=== PATIENT | female | born 1965 | race Asian ===

== ENCOUNTER 2018-04-08 11:20 | Day surgery (SDC) | payer BC ==
[~2018-04-08] VITALS: Ht 147.3 cm; Wt 44.5 kg
[2018-04-08] VITALS (9 sets, daily range): BP systolic 105–121; BP diastolic 55–70
[2018-04-08] MEDS ORDERED: Cyclopentolate 1% Opth Sol 2ml ONE (11:55)
[2018-04-08] MEDS ORDERED: Phenylephrine 2.5% Op 2ml Soln ONE (11:55)
[2018-04-08] MEDS: Phenylephrine 2.5% Op 2ml Soln RIGHT EYE SCH ×3 (12:05→12:24)
[2018-04-08] MEDS: Cyclopentolate 1% Opth Sol 2ml RIGHT EYE SCH ×3 (12:06→12:24)
[2018-04-08] MEDS ORDERED: JANUMET 50-1,01 EACH ORAL (12:22)
[2018-04-08] MEDS ORDERED: VITAMIN C500 M1 ORAL (12:22)
[2018-04-08] MEDS ORDERED: ACTOS15 MG ORAL (12:22)
[2018-04-08] MEDS ORDERED: ASPIR 8181 MG ORAL (12:22)
[2018-04-08] MEDS ORDERED: SIMVASTATIN20 MG ORAL (12:22)
[2018-04-08] MEDS ORDERED: VITAMIN B122500 MCG PO (12:22)
[2018-04-08] MEDS ORDERED: VITAMIN D400 INTLU ORAL (12:22)
[2018-04-08] MEDS ORDERED: PRANDIN PO (12:22)
[2018-04-08] MEDS ORDERED: JARDIANCE PO (12:22)
[2018-04-08] MEDS ORDERED: VITAMIN E400 UNI5 PO (12:22)
[2018-04-08] MEDS ORDERED: LR 1000ml 1,000 ML IVLG SCH (12:23)
--- NOTE | 2018-04-08 12:23 | Anethesia Preoperative Eval ---
Anesthesia Pre-op PMH/ROS General Date of Evaluation: Apr 08, 2018 Anesthesiologist: Issa ASA Score: ASA 2 Mallampati Score Class I : Soft palate, uvula, fauces, pillars visible Class II: Soft palate, uvula, fauces visible Class III: Soft palate, base of uvula visible Class IV: Only hard plate visible Mallampati Classification: Class II Surgeon: Michelle Diagnosis: Right eye retinal bleed Surgical Procedure: Right eye vitrectomy Anesthesia History: none Family History: no anesthesia problems Allergies: Coded Allergies: IBUPROFEN (Verified Allergy, Severe, 04/08/18) DIFFICULTY BREATHING,SWELLING ON FACE AND EYES,SNEEZING AND TEARY EYES Medications: see eMAR Patient NPO?: Yes NPO Date: Apr 07, 2018 NPO Time: 22:00 Past Medical History Cardiovascular: Reports: other - HLD; Denies: HTN, CAD, AR, valve dz, arrhythmia Pulmonary: Denies: asthma, COPD, MANAN, other Gastrointestinal/Genitourinary: Denies: GERD, CRI, ESRD, other Neurologic/Psychiatric: Denies: dementia, CVA, depression/anxiety, TIA, other Endocrine: Reports: DM; Denies: hypothyroidism, steroids, other HEENT: Denies: cataract (L), cataract (R), glaucoma, HO-CHUNK (L), HO-CHUNK (R), other Hematology/Immune: Denies: anemia, DVT, bleeding disorder, other Musculoskeletal/Integumentary: Denies: OA, RA, DJD, DDD, edema, other PSxH Narrative: c/s, left knee sx Anesthesia Pre-op Phys. Exam Physician Exam Last Vital Signs Date Time Temp Pulse Resp B/P (MAP) Pulse Ox O2 Delivery O2 Flow Rate FiO2 04/08/18 12:11 Room Air Constitutional: NAD Cardiovascular: RRR Respiratory: CTA Airway Exam Mallampati Score: Class II MO: full ROM: full Anesthesia Pre-op A/P Labs see chart Studies Pre-op Studies: EKG - sr Risk Assessment & Plan Assessment: ASA II Plan: MAC Status Change Before Surgery: No Pre-Antibiotics Drug: N/A Malrene Abraham MD Apr 08, 2018 12:23
[2018-04-08] MEDS ORDERED: Goniotaire 2.5% Opth Soln - 15ml ONE (12:28)
[2018-04-08] MEDS ORDERED: Pred Forte 1% Opth Susp 1ml ONE (12:28)
[2018-04-08] MEDS ORDERED: EPINEPHrine 1mg/1ml Amp ONE (12:28)
[2018-04-08] MEDS ORDERED: Lidocaine 2% MPF 5ml Vial INJ ONE (12:28)
[2018-04-08] MEDS ORDERED: Maxitrol Opth Oint 3.5gm ONE (12:28)
[2018-04-08] MEDS ORDERED: Kenalog-40 1ml Vial ONE (12:28)
[2018-04-08] MEDS ORDERED: BSS 15ml BTL ONE (12:29)
[2018-04-08] MEDS ORDERED: Kenalog-10 5ml Inj ONE (12:29)
[2018-04-08] MEDS ORDERED: Povidone-Iodine 5% opth solution ONE (12:29)
[2018-04-08] MEDS ORDERED: Dexamethasone 4mg/ml vial ONE (12:29)
[2018-04-08] MEDS ORDERED: Vancomycin 1gm vial IVPB ONE (12:29)
[2018-04-08] MEDS ORDERED: BSS 500ml btl ONE (12:29)
[2018-04-08] MEDS ORDERED: Sodium Hyaluronate 10 mg/ml 0.85ml ONE (12:30)
[2018-04-08] MEDS ORDERED: Bupivacaine 0.75% 30ml vial INJ ONE (12:30)
[2018-04-08] MEDS ORDERED: DiphenhydrAMINE 50mg/ml Inj IVP PRN (12:30)
[2018-04-08] MEDS ORDERED: Triamcinolone 40mg/ml PF Vial ONE (12:30)
[2018-04-08] MEDS ORDERED: Tetracaine 0.5% Opth 4ml Soln ONE (12:30)
[2018-04-08] MEDS ORDERED: fentaNYL 100 mcg/2 mL IV ONE (12:51)
[2018-04-08] MEDS ORDERED: DiphenhydrAMINE 50mg/ml Inj ONE (12:51)
[2018-04-08] MEDS ORDERED: Lidocaine 1% MPF 10mg/ml 5ml ONE (13:00)
[2018-04-08] MEDS ORDERED: Sterile Water Irrig 1000ml IRRIG ONE (13:00)
[2018-04-08] MEDS ORDERED: NS Irrig 1000ml ONE (13:00)
[2018-04-08] MEDS ORDERED: Propofol 200mg/20ml IV ONE (13:00)
[2018-04-08] MEDS ORDERED: LR 1000ml ONE (13:00)
[2018-04-08] MEDS ORDERED: Tobramycin Op Soln 0.3% 5ml ONE (14:12)
--- NOTE | 2018-04-08 14:22 | 48 Hour Post Anesthesia Eval ---
Post Anesthesia Evaluation Procedure: Right eye vitrectomy Date of Evaluation: Apr 08, 2018 Airway: patent Nausea: No Vomiting: No Pain Intensity: 0 Hydration Status: adequate Cardiopulmonary Status: at baseline Mental Status/LOC: patient returned to baseline Post-Anesthesia Complications: 0 Follow-up care needed: ready to discharge Marlene Abraham MD Apr 08, 2018 14:22
--- NOTE | 2018-04-08 14:22 | Pre-Procedure Note/Attestation ---
Pre-Procedure Note/Attestation Complete Prior to Procedure Planned Procedure: right Procedure Narrative: ppv/el/afx/sf6 od Indications for Procedure Pre-Operative Diagnosis: pdr, vh od Attestation I attest that I discussed the nature of the procedure; its benefits; risks and complications; and alternatives (and the risks and benefits of such alternatives ), prior to the procedure, with the patient (or the patient's legal pharmacy sales representative). I attest that, if there was a reasonable possibility of needing a blood transfusion, the patient (or the patient's legal pharmacy sales representative) was given the [facility] standardized written summary, pursuant to the [place] Blood Safety Act ([place] Health and Safety Code # 1645, as amended). I attest that I re-evaluated the patient just prior to the surgery and that there has been no change in the patient's H&P, except as documented below: Chris Martinez MD Apr 08, 2018 14:22
--- NOTE | 2018-04-08 14:22 | Immediate Post-Op Evaluation ---
Immediate Post-Op Evalulation Immediate Post-Op Evalulation Procedure: Right eye vitrectomy Date of Evaluation: Apr 08, 2018 Time of Evaluation: 14:23 IV Fluids: 300 Blood Products: 0 Estimated Blood Loss: 0 Urinary Output: 0 Blood Pressure Systolic: 116 Blood Pressure Diastolic: 68 Pulse Rate: 68 Respiratory Rate: 16 O2 Sat by Pulse Oximetry: 99 Temperature (Fahrenheit): 97.5 Pain Score (1-10): 0 Nausea: No Vomiting: No Complications 0 Patient Status: awake, reacts, patent, none Hydration Status: adequate Drug: N/A Marlene Abraham MD Apr 08, 2018 14:22
--- NOTE | 2018-04-08 14:23 | Operative Note - PDOC ---
Operative Note Operative Note Chief Complaint: Va loss od (severe) Pre-op Diagnosis: pdr, vh od Procedure: ppv/mp/el/sf6(22%) od Post-op Diagnosis: pdr, vh, trd od Post-op Diagnosis: same as pre-op plus Operative Findings: consistent w/pre-op dx studies Surgeon: cipriano Simulation Software Engineer: none Anesthesia: local, MAC Specimen: none Complications: none Condition: stable Estimated Blood Loss: none Drains: none Implant(s) used?: No Chris Martinez MD Apr 08, 2018 14:23
[2018-04-08] MEDS ORDERED: Norco 5mg/325mg tab ORAL PRN (14:30)
--- NOTE | 2018-04-08 20:15 | Operative Note - Dictated ---
DATE OF OPERATION: 04/08/2018 PREOPERATIVE DIAGNOSES: 1. Vitreous hemorrhage, right eye. 2. Proliferative diabetic retinopathy, right eye. POSTOPERATIVE DIAGNOSIS: 1. Vitreous hemorrhage, right eye. 2. Proliferative diabetic retinopathy, right eye. 3. Tractional retinal detachment, right eye. PROCEDURE: Pars plana vitrectomy; membrane peel; endolaser; air-fluid exchange; SF6 gas, right eye. PRIMARY SURGEON: Chris Martinez M.D. SOLAR ENGINEER: None. ANESTHESIA: Monitored anesthesia care with retrobulbar injection. ESTIMATED BLOOD LOSS: None. COMPLICATIONS: None. INDICATIONS: The patient had severe vision loss from longstanding nonclearing vitreous hemorrhage. After benefits, alternatives, and risks were discussed and informed consent was signed. DESCRIPTION OF PROCEDURE: The patient was brought to the operating theater and identified. The right eye then received a retrobulbar block using the usual mixture of Marcaine and lidocaine under intravenous sedation with a retrobulbar needle. The right eye was prepped and draped in the usual sterile fashion and a lid speculum was placed. Surgical pause was repeated. Under the operating microscope, a 23-gauge valved trocar/cannula was inserted in the inferotemporal quadrant at a distance of 3.5 mm posterior to the limbus. The infusion line was attached and observed and then turned on. The superotemporal and superonasal cannulas were placed in a similar fashion. The [employer] visualization system was brought into view and a light pattern vitrectomy cutter was placed into the eye. A dense dehemoglobinized vitreous hemorrhage was noted. Core vitrectomy was then performed followed by peripheral vitreous removal. At this point, the posterior pole could be visualized. There was patchy TRP laser in each quadrant. There was an area of vitreous traction and preretinal membrane with associated tractional retinal detachment and this was located in the superotemporal midperiphery. The detachment did not extend into the macula. Furthermore, there was a thick lipid and exudate in the subretinal space in this area. There were no absorbable retinal holes or tear. I used the vitrectomy cutter to both relieve the vitreous traction and to delaminate some preretinal material over the surface of the retina. Once again, I examined under high magnification and there was no retinal holes or tear in this area. I performed some peripheral vitrectomy and my learning and development assistant provided scleral depression. Next, I introduced endolaser and provided TRP pattern of laser in all quadrants and area was not previously treated. I gave a row of confluent laser around the edges of the lipids and subretinal fluid in the superotemporal area of tractional retinal detachment. Next, I performed an air fluid exchange. The instruments were then removed from the eye and 22% SF6 gas was diluted by myself. Gas was injected through the infusion line and allowed to vent through the supratemporal cannula. Next, all cannulas were removed. The superonasal and superotemporal sclerotomies were then closed with 7-0 Vicryl and overlying conjunctiva closed with 6-0 plain gut in a buried suture patten. Some additional gas was given with 30-gauge needle through pars plana superiorly to bring the palpated intraocular pressure to be between 10 and 15, this was desired. Next, subconjunctival vancomycin and dexamethasone were then injected. Then, the lid speculum and drape were then removed. The periocular area cleaned and atropine drop, TobraDex drop, prednisolone drops, Maxitrol ointment were placed on the ocular surface and a patch and shield were fixed over the closed lids with tape. The patient was taken to the recovery area. Gas precautions were reviewed positioning reviewed and postoperative examination for tomorrow confirmed. There were no complications during the surgery. I performed the entire procedure. Chris Martinez M.D. DR: Dillon JOB#: [id number] CC:
== END 2018-04-08 16:10 | disposition home or self-care (01) ==
LOC: SUR 11:20
DX: H43.11 Vitreous hemorrhage, right eye (principal); E11.3531 Type 2 diabetes mellitus with proliferative diabetic retinopathy with traction retinal detachment not involving the macula, right eye; Z79.4 Long term (current) use of insulin; E03.9 Hypothyroidism, unspecified; E78.5 Hyperlipidemia, unspecified; Z88.6 Allergy status to analgesic agent
CPT/HCPCS: 67042; 82962; J0171; J1100; J1200; J2704; J3010; J3370; J3470; J3490; 94003; 94150; J3300